=== PATIENT | female | born 2000 | race Caucasian/White ===

== ENCOUNTER → 2021-07-25 01:42 | Outpatient (CLI) | payer BC, SELFPAY ==
[2021-07-26 13:33] LABS: SARS-CoV-2 RNA PCR Positive
== END ==
PROVIDERS: PCP Pediatrics; Visit Provider Pediatrics
DX: U07.1 COVID-19 (principal)
CPT/HCPCS: C9803; U0003; U0005

== ENCOUNTER 2023-04-30 12:55 | Outpatient (CLI) | payer BC, SELFPAY | END 2023-04-30 12:56 | disposition home or self-care (01) | PROVIDERS: Visit Provider Obstetrics & Gynecology | DX: Z01.818 Encounter for other preprocedural examination (principal); N80.9 Endometriosis, unspecified | CPT/HCPCS: 36415; 86850; 86900; 86901 ==

== ENCOUNTER 2023-05-03 00:38 | Day surgery (SDC) | payer BC, SELFPAY ==
[2023-04-24 13:50] VITALS: BMI 26.4
--- NOTE | 2023-04-24 13:54 | PC.NURSE ---
Report to the Outpatient Waiting Room, entrance under the green pavilion located off [facility], at time 6:00 on date 05/03/23. Planned Procedure Time: 7:30. Time changes happen often and if your time is changed the preop area will call you the afternoon before. - You and your visitor will be asked to self-screen and do not enter if you have any COVID symptoms. - A mask is optional within the hospital at this time. Patients may have clear liquids (water, carbonated beverages, clear teas, apple juice) until 3 hours prior to surgery (4:30) with a maximum of 20 ounces. - No food from midnight until time of surgery Take the following medications with a SIP of water the morning of surgery: WELLBUTRIN, CONTROL, INHALER IF NEEDED DO NOT STOP ANY OF YOUR OTHER PRESCRIPTION MEDICATIONS PRIOR TO SURGERY ?EXCEPT THE FOLLOWING Medications to discontinue per physician: N/A Date to take last dose: N/A Please no make-up, nail kyrgyz, hairspray, perfume, deodorant, or body powder the day of surgery. No jewelry (including any body piercings) or valuables the day of surgery, leave them at home. Please take a shower or bath the night before, or the morning of, surgery with an antibacterial soap. Wear comfortable, loose fitting clothing. - Jewelry must be removed prior to entering the operating room. Rings and piercings that are not removed may be cut off. - The hospital will not accept responsibility for valuables. - Please leave all valuables, including medications, at home the day of surgery. If you are going home after surgery, a licensed route sales driver must drive you home. - NO public transportation without another adult if you receive anesthesia. - We recommend that an adult stay with you for 24 hours following discharge. - We also recommend that you do not drive, make important decision, drink alcoholic beverages, or take any drugs that were not prescribed by your health care provider for at least 24 hours after your discharge time. Follow any additional instructions given to you from your surgeon. If you or anyone in your household have experienced Covid symptoms in the past week, please notify your surgeon or the nurse liaison at the phone number below for possible testing. Telephone instructions given to PT - COLLINS MIRANDA and asked if any additional questions and then verbalized understanding. Patient advised to call surgeon office or pre surgery nurse liaison [phone] if any additional questions.
--- NOTE | 2023-05-01 07:25 | PM.IMHP ---
H&P: HPI History of Present Illness Date/Time: 05/01/23 07:25 Chief Complaint: Pelvic pain and left ovarian cyst Narrative: A 22-year-old female 0 admitted for laparoscopy cauterization of expected endometriosis and left ovarian cystectomy versus cyst destruction. She has pain discomfort dyspareunia. She had negative STD testing. Risks and benefits were reviewed including but not exclusive of , aspiration pneumonia, bleeding, transfusion, perforation injury to bowel, bladder, ureters, or other internal organs with need for open laparotomy. She received the [employer] handout entitled laparoscopy. She had all questions answered. She asked to proceed [facility] Social History Social History Smoking status: Never smoker Alcohol intake: current Alcohol use details: RARE Substance use: never Substance use type: does not use Living arrangements: with family Spiritual care concerns: No Meds Home Medications and Allergies Home Medications Medication Instructions Recorded Confirmed Type albuterol sulfate 90 mcg/actuation 2 puff inhalation QID PRN 04/24/23 04/24/23 History aerosol inhaler Bronchospasm bupropion HCl 300 mg 24 hr tablet, 300 mg PO QAM 04/24/23 04/24/23 History extended release (Wellbutrin XL) norgestimate-ethinyl estradiol 1 tablet PO DAILY 04/24/23 04/24/23 History 0.18 mg/0.215mg/0.25mg-35 mcg(28)tablet (Tri-Sprintec (28)) pantoprazole 40 mg tablet,delayed 40 mg PO QAM 04/24/23 04/24/23 History release Allergies Allergy/AdvReac Type Severity Reaction Status Date / Time No Known Allergies Allergy Verified 04/24/23 13:49 Exam Const: General: cooperative, healthy appearing and comfortable Nutritional Appearance: average body habitus Orientation/consciousness: oriented to person, oriented to place and oriented to time Resp: Effort & Inspection: normal respiratory effort Cardio: Rate: regular rate Rhythm: regular rhythm Heart sounds: S1 normal heart sound present and S2 normal heart sound present GI: Inspection: normal to inspection : External Female Exam: normal external appearance Speculum Exam - Vagina: normal appearance of the vagina Speculum Exam - Cervix: normal appearance of the cervix Bimanual exam- vagina & uterus: uterine shape normal Bimanual Exam- Adnexa, other: tender bilaterally Assessment and Plan Assessment and plan (1) Pelvic pain: Code(s): R10.2 - Pelvic and perineal pain Status: Acute (2) Left ovarian cyst: Code(s): N83.202 - Unspecified ovarian cyst, left side Status: Acute Plan Laparoscopy with excision of endometriosis if present. Destruction of left ovarian cyst
[2023-05-03] VITALS (7 sets, daily range): BP systolic 107–123; BP diastolic 64–93; PULSE 81–104; RESP 12–22; TEMP 36.2–36.3; O2SAT 98–100
--- NOTE | 2023-05-03 06:26 | WPDHPUPDATE1 ---
History and Physical Update Update Date/Time: 05/03/23 06:26 History and Physical has been reviewed, including an updated exam of the patient. There are NO changes in the patient's condition. Risks, benefits, and alternatives have been discussed and questions answered. Patient agrees to proceed with procedure.
[2023-05-03] MEDS: LACTATED RINGERS 1,000 ML 30 ML IV CONT ×2 (06:33→08:40)
[2023-05-03] MEDS: ACETAMINOPHEN 500 MG TABLET 1000 MG PO (06:33)
--- NOTE | 2023-05-03 06:41 | WPDANESEPPF ---
Anes - Initial Pre Proc Eval Procedure: Operation Date: 05/03/23 07:30 Proposed Procedures p Laparoscopy with Cautery Excision of Endometriosis, Left Ovarian Cystectomy - Taran Partida MD Date/Time: 05/03/23 06:41 Surgeon: Taran Partida MD Pre Op Diagnosis: pelvic pain,endometriosis, irregular bleeding Patient Data Age: 22 Gender: F Height: 1.63 m Weight: 70 kg Allergies Allergy/AdvReac Type Severity Reaction Status Date / Time No Known Allergies Allergy Verified 05/03/23 06:23 Home Medications Medication Instructions Recorded Confirmed Type albuterol sulfate 90 mcg/actuation 2 puff inhalation QID PRN 04/24/23 05/03/23 History aerosol inhaler Bronchospasm bupropion HCl 300 mg 24 hr tablet, 300 mg PO QAM 04/24/23 05/03/23 History extended release (Wellbutrin XL) norgestimate-ethinyl estradiol 1 tablet PO DAILY 04/24/23 05/03/23 History 0.18 mg/0.215mg/0.25mg-35 mcg(28)tablet (Tri-Sprintec (28)) pantoprazole 40 mg tablet,delayed 40 mg PO QAM 04/24/23 05/03/23 History release hydrocodone 5 mg-acetaminophen 325 1 tablet PO Q4H PRN pain #20 tabs 05/03/23 Rx mg tablet Patient hx anesthesia problems: none Family hx anesthesia problems: none Results Review: All pre-operative results and documents have been reviewed as part of the pre-operative evaluation. [facility] [place] Past Medical History Medical History (Updated 05/03/23 @ 06:42 by Taran Garcia MD) Anxiety Surgical History Surgical History (Updated 05/03/23 @ 06:42 by Taran Garcia MD) H/O laparoscopy Social History Social History Smoking status: Never smoker Alcohol intake: current Alcohol use details: RARE Substance use: never Substance use type: does not use Living arrangements: with family Spiritual care concerns: No Anes - Eval Final PreProcedure Day of Procedure 05/03/23 06:41 Heart: regular rate and rhythm Lungs: clear to auscultation Airway: Mallampati scale class II Neurological: alert and oriented Last oral intake: >/= 8 hours ASA classification: II Emergent: no Anesthetic plan: proceed Anesthesia type and monitoring: general ETT and standard monitoring Results Review: All pre-operative results and documents have been reviewed as part of the pre-operative evaluation. Informed Consent: The patient's anesthetic plan and its attendant risks and benefits were discussed with the patient/family/POA. Questions were solicited and answers provided to the satisfaction of the patient/family/POA.
[2023-05-03] MEDS: SCOPOLAMINE 1.5 MG PATCH TRANSDERM (06:53)
[2023-05-03] MEDS: KETOROLAC 15 MG/ML VIAL (*BKC) IV PUSH (07:17)
--- NOTE | 2023-05-03 07:57 | W.PM.PROC2 ---
Procedure Note - Detailed Date of Procedure 05/03/23 Pre-op Diagnosis pelvic pain,endometriosis, irregular bleeding Post-op Diagnosis Same Procedure Performed Laparoscopy with destruction of endometriosis Surgeon Taran Partida MD Anesthesia General Indications /22-year-old female with continuous pelvic pain and irregular bleeding Findings Endometrial implants and the cul-de-sac. Normal-appearing ovaries and tubes. Normal-appearing appendix and gallbladder with liver edge appeared Description of Procedure Patient was prepped draped in the normal sterile fashion placed in the dorsal lithotomy position. Under excellent general trach anesthesia was placed in posterior. Anterior lip of the cervix grasped with single-tooth tenaculum. Chavarria's cannula inserted the cervix and attached to the single-tooth to be used later for uterine manipulation. The bladder was emptied of clear urine and a weighted speculum was removed. Gloves were changed A supraumbilical incision made the Veress needle passed in the abdomen. Abdomen filled with CO2 gas 15mmmmofmercury. The 5mm trocar advanced under direct visualization assuring no injury. Patient placed in Trendelenburg and the 5mm trocar advanced in the suprapubic area. Uterus was elevated and multiple areas of endometriosis were seen. These were point cauterized at 35 w per 2nd until complete desiccation was undertaken and all the areas before and after pictures were taken. The ovaries appeared within normal limits as did the tubes in the uterus. The appendix was normal in size and shape as was the gallbladder and liver edge. Irrigation was undertaken until clear the lower site removed. The gas removed from the abdomen. The upper site removed the incisions closed with 4 Monocryl and glue. The patient went to recovery in satisfactory condition. All sponge, needle, instrument counts were correct. There were no immediate complications Estimated Blood Loss 5 Drains No Packing No Pathology None sent Complications No immediate complications Condition Stable Disposition PACU
[2023-05-03] MEDS: fentaNYL CITRATE INJ (*CRX) 100 MCG/2 ML VIAL 25 MCG IV PUSH ×4 (08:23→08:43)
[2023-05-03] MEDS: ONDANSETRON INJ 4 MG/2 ML VIAL IV PUSH (08:29)
[2023-05-03] MEDS: oxyCODONE HCL (*CRX) 5 MG TAB IR PO (09:14)
== END 2023-05-03 09:47 | disposition home or self-care (01) ==
PROVIDERS: Visit Provider Obstetrics & Gynecology
PROC: (CPT 49320; principal; 2023-05-03 07:30)
DX: N80.8 Other endometriosis (principal); R10.2 Pelvic and perineal pain; N93.9 Abnormal uterine and vaginal bleeding, unspecified; F41.9 Anxiety disorder, unspecified; Z79.51 Long term (current) use of inhaled steroids
CPT/HCPCS: 58662; 36415; 86850; 86900; 86901; A9270; J1100; J1885; J2250; J2405; J2704; J2710; J3010; J7030; J7120